=== PATIENT | male | born 1970 | race African-American/Black ===

== ENCOUNTER 2017-01-22 05:44 | Emergency (ER) | payer OTHER ==
[~2017-01-22] VITALS: Ht 177.8 cm; Wt 122.0 kg
[~2017-01-22 05:44] MED LIST: LISINOPRIL10 MG PO; ZYLOPRIM300 MG PO; allo PO
[2017-01-22] MEDS ORDERED: INDOCIN50 MG/CAP PO (06:13)
[2017-01-22] MEDS ORDERED: LORTAB 10-325 M1 TAB PO (06:13)
[2017-01-22 06:21] VITALS: BP 132/78
== END 2017-01-22 06:34 | disposition home or self-care (01) | DRG 554 ==
LOC: ED 05:44
DX: M10.071 Idiopathic gout, right ankle and foot (principal); M25.474 Effusion, right foot; M79.671 Pain in right foot

== ENCOUNTER 2017-06-23 00:19 | Emergency (ER) | payer OTHER ==
[~2017-06-23] VITALS: Ht 177.8 cm; Wt 132.6 kg
[~2017-06-23 00:19] MED LIST changes: +INDOCIN50 MG/CAP PO; +LORTAB 10-325 M1 TAB PO
[2017-06-23] MEDS ORDERED: TORADOL PO (00:43)
[2017-06-23] MEDS ORDERED: CLEOCIN150 MG PO (00:43)
[2017-06-23 00:55] VITALS: BP 168/100
== END 2017-06-23 00:59 | disposition home or self-care (01) | DRG 159 ==
LOC: ED 00:19
DX: K02.9 Dental caries, unspecified (principal); I10 Essential (primary) hypertension; M10.9 Gout, unspecified

== ENCOUNTER 2017-08-18 23:35 | Observation (INO) | payer OTHER ==
[~2017-08-18] VITALS: Ht 177.8 cm; Wt 132.0 kg
[~2017-08-18 23:35] MED LIST changes: +CLEOCIN150 MG PO; +TORADOL PO
[2017-08-19] MEDS ORDERED: ZESTRIL40 MG PO (00:01)
[2017-08-19 00:09] LABS: HEMATOCRIT 44.5 % (39.0-50.0); HEMOGLOBIN 14.7 g/dl (14.0-18.0); IMMATURE GRANULOCYTES 0.4 % (0.0-1.0); MEAN CELL VOLUME 84.8 fL CALC (80.0-100.0); NEUT# 5.39 thou/uL (1.82-7.42); RED BLOOD COUNT 5.25 mill/uL (4.70-6.10); RED CELL DISTRI WIDTH 14.7 % (11.5-15.5)
[2017-08-19 00:19] LABS: ANION GAP 16 (6-22 (CALC)); BUN 15 mg/dL (9-20); BUN/CREATININE RATIO 12 (12-20 (CALC)); CARBON DIOXIDE 22 mmol/l (22-30); CHLORIDE 109 mmol/l (95-108); CREATININE 1.3 mg/dL (0.7-1.3); GFR 59 ML/MIN (>=60 (CALC)); GFR FOR AFR.AMER. > 60 ML/MIN (>=60 (CALC)); POTASSIUM 3.9 mmol/l (3.5-5.1); SODIUM 143 mmol/l (137-146)
[2017-08-19 01:18] VITALS: BP 178/107
[2017-08-19 01:38] LABS: CHOLESTEROL HDL RATIO 4.5 (<4.4 (CALC))
[2017-08-19 02:09] LABS: TSH, 3RD GENERATION 2.64 uIU/mL (0.47 - 4.68)
[2017-08-19 04:45] VITALS: BP 154/94
[2017-08-19 08:04] VITALS: BP 153/91
[2017-08-19 11:28] VITALS: BP 159/80
[2017-08-19] MEDS ORDERED: AMLODIPINE BESYL5 MG PO (11:48)
[2017-08-19] MEDS ORDERED: ASPIRIN CHEWABL81 MG PO (11:48)
[2017-08-19] MEDS ORDERED: CLEOCIN150 MG PO (11:54)
[2017-08-19] MEDS ORDERED: FLORASTOR250 M1 PO (11:58)
== END 2017-08-19 13:54 | disposition home or self-care (01) | DRG 313 ==
LOC: ED 23:35 → ED-I 08-19 00:34 → ED 08-19 00:54 → MS2 08-19 00:55
PROVIDERS: Family Medicine; ADMIT Internal Medicine; ATTEND Internal Medicine
DX: R07.2 Precordial pain (principal); E66.01 Morbid (severe) obesity due to excess calories; Z68.41 Body mass index [BMI] 40.0-44.9, adult; I16.0 Hypertensive urgency; I10 Essential (primary) hypertension; E78.5 Hyperlipidemia, unspecified; F17.290 Nicotine dependence, other tobacco product, uncomplicated; M10.9 Gout, unspecified; K04.7 Periapical abscess without sinus; K02.9 Dental caries, unspecified
CPT/HCPCS: J1650

== ENCOUNTER 2018-05-06 16:03 | Emergency (ER) | payer OTHER ==
[~2018-05-06] VITALS: Ht 177.8 cm; Wt 135.4 kg
[~2018-05-06 16:03] MED LIST changes: +AMLODIPINE BESYL5 MG PO; +ASPIRIN CHEWABL81 MG PO; +FLORASTOR250 M1 PO; +ZESTRIL40 MG PO
[2018-05-06 17:55] LABS: ALBUMIN 3.9 g/dL (3.2-5.0); ALKALINE PHOSPHATASE 67 u/l (38-126); ANION GAP 12 (6-22 (CALC)); BILIRUBIN, TOTAL 0.5 mg/dL (0.0-1.4); BUN 13 mg/dL (9-20); BUN/CREATININE RATIO 12 (12-20 (CALC)); CARBON DIOXIDE 24 mmol/l (22-30); CHLORIDE 110 mmol/l (95-108); GFR > 60 ML/MIN (>=60 (CALC)); GFR FOR AFR.AMER. > 60 ML/MIN (>=60 (CALC)); POTASSIUM 3.9 mmol/l (3.5-5.1); SGOT/AST 28 u/l (17-59); SODIUM 142 mmol/l (137-146); TOTAL PROTEIN 7.3 g/dL (6.3-8.2)
[2018-05-06] MEDS ORDERED: LISINOPRIL40 MG PO (18:02)
[2018-05-06] MEDS ORDERED: CLEOCIN300 MG PO (18:02)
[2018-05-06 18:09] VITALS: BP 151/76
== END 2018-05-06 18:19 | disposition home or self-care (01) | DRG 948 ==
LOC: ED 16:03
PROVIDERS: Emergency Medicine
DX: R60.0 Localized edema (principal); I10 Essential (primary) hypertension

== ENCOUNTER 2018-09-01 05:20 | Emergency (ER) | payer OTHER ==
[~2018-09-01] VITALS: Ht 177.8 cm; Wt 136.8 kg
[~2018-09-01 05:20] MED LIST changes: +CLEOCIN300 MG PO; +LISINOPRIL40 MG PO
[2018-09-01] MEDS ORDERED: ASPIRIN81 MG PO (06:10)
[2018-09-01 06:35] LABS: HEMATOCRIT 45.4 % (39.0-50.0); HEMOGLOBIN 14.6 g/dl (14.0-18.0); IMMATURE GRANULOCYTES 0.5 % (0.0-5.0); MEAN CELL VOLUME 85.5 fL CALC (80.0-100.0); MEAN CORPUSCULAR HGB 27.5 pG CALC (26.0-32.0); MEAN CORPUSCULAR HGB CONC 32.2 g/L CALC (32.0-36.0); NEUT# 5.7 thou/uL (1.82-7.42); RED BLOOD COUNT 5.31 mill/uL (4.70-6.10); RED CELL DISTRI WIDTH 14.9 % (11.5-15.5)
[2018-09-01 06:48] LABS: ALBUMIN 4.2 g/dL (3.2-5.0); ALKALINE PHOSPHATASE 83 u/l (38-126); ANION GAP 13 (6-22 (CALC)); BILIRUBIN, TOTAL 0.5 mg/dL (0.0-1.4); BUN 13 mg/dL (9-20); BUN/CREATININE RATIO 12 (12-20 (CALC)); CARBON DIOXIDE 23 mmol/l (22-30); CHLORIDE 110 mmol/l (95-108); CREATININE 1.1 mg/dL (0.7-1.3); GFR > 60 ML/MIN (>=60 (CALC)); GFR FOR AFR.AMER. > 60 ML/MIN (>=60 (CALC)); POTASSIUM 3.9 mmol/l (3.5-5.1); SGOT/AST 34 u/l (17-59); SODIUM 142 mmol/l (137-146); TOTAL PROTEIN 7.8 g/dL (6.3-8.2)
[2018-09-01 07:00] LABS: MYOGLOBIN 98 ng/mL (0 - 121)
[2018-09-01 08:00] LABS: URINE BILIRUBIN - DIPSTICK NEGATIVE (NEGATIVE); URINE BLOOD DIPSTICK NEGATIVE (NEGATIVE); URINE COLOR YELLOW; URINE GLUCOSE - DIPSTICK NEGATIVE (NEGATIVE); URINE KETONE NEGATIVE (NEGATIVE); URINE LEUK ESTERASE NEGATIVE (NEGATIVE); URINE NITRITE - DIPSTICK NEGATIVE (Negative); URINE PH 6.5 (4.5-8.0); URINE PROTEIN - DIPSTICK 30 mg/dL (NEG-TRACE); URINE UROBILINOGEN - DIPSTICK 0.2 E.U./dL (0.2)
[2018-09-01 08:04] LABS: BARBITURATES NEGATIVE (NEGATIVE); COCAINE NEGATIVE (NEGATIVE); METHADONE NEGATIVE (NEGATIVE); OXCYCODONE NEGATIVE (NEGATIVE); TETRAHYDROCANNABIONOL NEGATIVE (NEGATIVE); TRICYLIC ANTIDEPRESSANTS NEGATIVE (NEGATIVE); URINE RBC 0-2 RBC/hpf (0-5); URINE WBC 0-2 WBC/hpf (0-5)
[2018-09-01] MEDS ORDERED: ZESTRIL40 MG PO (08:21)
[2018-09-01 08:37] VITALS: BP 155/67
== END 2018-09-01 09:50 | disposition home or self-care (01) | DRG 149 ==
LOC: ED 05:20
PROVIDERS: Emergency Medicine
DX: R42 Dizziness and giddiness (principal); S96.911A Strain of unspecified muscle and tendon at ankle and foot level, right foot, initial encounter; I10 Essential (primary) hypertension; F17.290 Nicotine dependence, other tobacco product, uncomplicated; X58.XXXA Exposure to other specified factors, initial encounter

== ENCOUNTER 2018-10-25 04:25 | Emergency (ER) | payer OTHER ==
[~2018-10-25] VITALS: Ht 177.8 cm; Wt 131.4 kg
[~2018-10-25 04:25] MED LIST changes: +ASPIRIN81 MG PO
[2018-10-25 06:00] VITALS: BP 174/94
== END 2018-10-25 06:00 | disposition home or self-care (01) | DRG 914 ==
LOC: ED 04:25
DX: S09.90XA Unspecified injury of head, initial encounter (principal); R51 Headache; I10 Essential (primary) hypertension; W01.0XXA Fall on same level from slipping, tripping and stumbling without subsequent striking against object, initial encounter; Y99.0 Civilian activity done for income or pay

== ENCOUNTER 2019-08-29 | Emergency (ER) | payer OTHER ==
[2019-08-30] MEDS ORDERED: VOLTAREN - GENE75 MG PO (00:26)
== END 2019-08-30 01:08 | disposition home or self-care (01) | DRG 563 ==
DX: S83.91XA Sprain of unspecified site of right knee, initial encounter (principal); I10 Essential (primary) hypertension; X50.0XXA Overexertion from strenuous movement or load, initial encounter

== ENCOUNTER 2019-09-22 19:06 | Emergency (ER) | payer OTHER ==
[~2019-09-22 19:06] MED LIST changes: +VOLTAREN - GENE75 MG PO
[2019-09-22] MEDS ORDERED: LISINOPRIL40 MG PO (19:34)
[2019-09-22] MEDS ORDERED: STERAPRED DS10 MG PO ×2 (19:43)
[2019-09-22 20:25] VITALS: BP 168/96
== END 2019-09-22 20:25 | disposition home or self-care (01) | DRG 563 ==
LOC: ED 19:06
DX: S83.91XA Sprain of unspecified site of right knee, initial encounter (principal); I10 Essential (primary) hypertension; X58.XXXA Exposure to other specified factors, initial encounter

== ENCOUNTER 2020-02-03 08:45 | Emergency (ER) | payer OTHER ==
[~2020-02-03] VITALS: Ht 177.8 cm; Wt 140.0 kg
[~2020-02-03 08:45] MED LIST changes: +STERAPRED DS10 MG PO
[2020-02-03 09:13] LABS: HEMATOCRIT 46.6 % (39.0-50.0); HEMOGLOBIN 14.4 g/dl (14.0-18.0); IMMATURE GRANULOCYTES 0.4 % (0.0-5.0); MEAN CELL VOLUME 85.8 fL CALC (80.0-100.0); MEAN CORPUSCULAR HGB 26.5 pG CALC (26.0-32.0); MEAN CORPUSCULAR HGB CONC 30.9 g/dL CAL (32.0-36.0); NEUT# 5.93 thou/uL (1.82-7.42); RED BLOOD COUNT 5.43 mill/uL (4.70-6.10); RED CELL DISTRI WIDTH 14.9 % (11.5-15.5)
[2020-02-03 09:36] LABS: ANION GAP 11 (6-22 (CALC)); BUN 16 mg/dL (9-20); BUN/CREATININE RATIO 14 (12-20 (CALC)); CARBON DIOXIDE 24 mmol/l (22-30); CHLORIDE 107 mmol/l (95-108); CREATININE 1.2 mg/dL (0.7-1.3); GFR > 60 ML/MIN (>=60 (CALC)); GFR FOR AFR.AMER. > 60 ML/MIN (>=60 (CALC)); SODIUM 138 mmol/l (137-146)
[2020-02-03 10:29] LABS: URINE BILIRUBIN - DIPSTICK NEGATIVE (NEGATIVE); URINE BLOOD DIPSTICK NEGATIVE (NEGATIVE); URINE COLOR YELLOW; URINE GLUCOSE - DIPSTICK NEGATIVE (NEGATIVE); URINE KETONE NEGATIVE (NEGATIVE); URINE LEUK ESTERASE NEGATIVE (NEGATIVE); URINE NITRITE - DIPSTICK NEGATIVE (Negative); URINE PROTEIN - DIPSTICK NEGATIVE (NEG-TRACE); URINE SPECIFIC GRAVITY >=1.030; URINE UROBILINOGEN - DIPSTICK 0.2 E.U./dL (0.2)
[2020-02-03 10:46] VITALS: BP 151/88
== END 2020-02-03 11:04 | disposition home or self-care (01) | DRG 305 ==
LOC: ED 08:45
PROVIDERS: Student in an Organized Health Care Education/Training Program
DX: I10 Essential (primary) hypertension (principal)

== ENCOUNTER 2020-07-18 22:28 | Emergency (ER) | payer OTHER ==
[~2020-07-18] VITALS: Ht 177.8 cm; Wt 129.5 kg
[2020-07-18] MEDS ORDERED: PRAVASTATIN SOD10 MG PO (23:00)
[2020-07-18] MEDS ORDERED: NORVASC2.5 M1 PO (23:00)
[2020-07-18 23:30] LABS: HEMATOCRIT 53.1 % (39.0-50.0); HEMOGLOBIN 15.9 g/dl (14.0-18.0); IMMATURE GRANULOCYTES 0.5 % (0.0-5.0); MEAN CELL VOLUME 89.1 fL CALC (80.0-100.0); MEAN CORPUSCULAR HGB 26.7 pG CALC (26.0-32.0); MEAN CORPUSCULAR HGB CONC 29.9 g/dL CAL (32.0-36.0); NEUT# 3.6 thou/uL (1.82-7.42); RED BLOOD COUNT 5.96 mill/uL (4.70-6.10)
[2020-07-18 23:47] LABS: ALBUMIN 4.4 g/dL (3.2-5.0); BILIRUBIN, TOTAL 0.5 mg/dL (0.0-1.4); CREATININE 1.5 mg/dL (0.7-1.3); POTASSIUM 4.2 mmol/l (3.5-5.1); TOTAL PROTEIN 8.8 g/dL (6.3-8.2)
[2020-07-19 01:10] VITALS: BP 114/68
== END 2020-07-19 01:10 | disposition home or self-care (01) | DRG 179 ==
LOC: ED 22:28
PROVIDERS: Emergency Medicine
DX: U07.1 COVID-19 (principal); R19.7 Diarrhea, unspecified; R10.9 Unspecified abdominal pain; I10 Essential (primary) hypertension; E78.00 Pure hypercholesterolemia, unspecified

== ENCOUNTER 2020-07-20 17:16 | Inpatient (IN) | payer OTHER ==
[~2020-07-20] VITALS: Ht 177.8 cm; Wt 142.0 kg
[~2020-07-20 17:16] MED LIST changes: +NORVASC2.5 M1 PO; +PRAVASTATIN SOD10 MG PO
--- NOTE | 2020-07-20 17:30 | NUR ---
PT TO ROOM # 9 VIA W/C FOR BEDSIDE TRIAGE
[2020-07-20 18:21] LABS: HEMATOCRIT 49.6 % (39.0-50.0); HEMOGLOBIN 15.8 g/dl (14.0-18.0); IMMATURE GRANULOCYTES 0.3 % (0.0-5.0); MEAN CELL VOLUME 84.1 fL CALC (80.0-100.0); MEAN CORPUSCULAR HGB 26.8 pG CALC (26.0-32.0); MEAN CORPUSCULAR HGB CONC 31.9 g/dL CAL (32.0-36.0); NEUT# 5.21 thou/uL (1.82-7.42); RED BLOOD COUNT 5.9 mill/uL (4.70-6.10); RED CELL DISTRI WIDTH 14.6 % (11.5-15.5)
--- NOTE | 2020-07-20 18:23 | NUR ---
Reassessment of patient completed. No distress noted.
[2020-07-20 18:43] LABS: ALBUMIN 4.5 g/dL (3.2-5.0); BILIRUBIN, TOTAL 0.4 mg/dL (0.0-1.4); CREATININE 1.5 mg/dL (0.7-1.3); POTASSIUM 4.6 mmol/l (3.5-5.1); TOTAL PROTEIN 8.5 g/dL (6.3-8.2)
[2020-07-20 18:47] LABS: ACT PARTIAL THROMBO TIME 30.5 SECONDS (20.0-32.5); INTERNATIONAL NORMALIZED RATIO 1.1 RATIO (0.7-1.3); PROTHROMBIN TIME 10.7 SECONDS (9.0-12.5)
--- NOTE | 2020-07-20 19:09 | NUR ---
REPORT GIVEN TO DEYSI DE LOS SANTOS
--- NOTE | 2020-07-20 21:00 | NUR ---
PT UP TO CHAIR WHILE STRETCHER REMOVED/HOSPITAL BED RETURNED TO ROOM.
--- NOTE | 2020-07-20 21:10 | NUR ---
LAB HERE TO COLLECT BLOOD
--- NOTE | 2020-07-20 21:54 | NUR ---
WILLIAM LEAL NOTIFIED OF O2 SATS DROPPING BELOW 90...ON 5 LPM NC. WILL HAVE RT PLACE PT ON HIGH FLOW O2 TO MAINTAIN SAT >92.
--- NOTE | 2020-07-20 22:05 | NUR ---
RT HERE AND PLACED PT ON HIGH FLOW. WILL MONITOR. PT GIVEN 2 CUPS OF APPLE JUICE AND FROZEN DINNER WILL BE BROUGHT DOWN BY SALES ASSISTANT DISPLAYS.
--- NOTE | 2020-07-20 22:10 | NUR ---
FROZEN DINNER PREPARED FOR PT.
--- NOTE | 2020-07-20 22:28 | NUR ---
report from er staff is that pt positive for covid 2 days ago, so not retested and considered positive
--- NOTE | 2020-07-20 22:50 | NUR ---
FROZEN DINNER PROVIDED. PT MADE COMFORTABLE. O2 SATS >94
[2020-07-21] VITALS (14 sets, daily range): BP systolic 120–156; BP diastolic 64–95
--- NOTE | 2020-07-21 02:54 | NUR ---
UPDATED BROTHER ON PT'S CONDITION AT PT'S APPROVAL.
--- NOTE | 2020-07-21 04:46 | NUR ---
REPORT TO VITALY/ICU.
--- NOTE | 2020-07-21 05:00 | NUR ---
50 yr old black male rec'd per stretcher from er. transferred self to bed. bed weight obtained. o2 cont 8 l/m per nc. cardiac nurse shows sinus rhythm. #22 lt hand. ns infusing @ 75cchr. oriented to room. fall & air/contact precautions initiated.
[2020-07-21 07:09] LABS: HEMOGLOBIN 14.8 g/dl (14.0-18.0); IMMATURE GRANULOCYTES 0.3 % (0.0-5.0); MEAN CELL VOLUME 85.3 fL CALC (80.0-100.0); MEAN CORPUSCULAR HGB 26.9 pG CALC (26.0-32.0); MEAN CORPUSCULAR HGB CONC 31.5 g/dL CAL (32.0-36.0); NEUT# 3.95 thou/uL (1.82-7.42); RED BLOOD COUNT 5.51 mill/uL (4.70-6.10); RED CELL DISTRI WIDTH 14.6 % (11.5-15.5)
--- NOTE | 2020-07-21 07:25 | NUR ---
pt awake in bed conversing on cell phone; no apparent distress noted; pt offers no complaints; assessment completed at this time; pt alert and oriented; denies pain; no n/v noted; resp even and unlabored; lungs clear/ diminished bases; skin color wnl; o2 per nc at 8L; no resp distress noted; hr reg; strong pulses; no pedal edema noted; sr on monitor; abd soft/ distended with bs present; no bm noted per scenario writer; pt no urine to inspect at this time; urinal at bedside; #22 to lh patent with ivf infusing without complication; no redness or edema noted at site; plan of care/ am meds explained; proning explained; call light within reach; will continue to monitor
[2020-07-21 07:35] LABS: ALKALINE PHOSPHATASE 58 u/l (38-126); ANION GAP 15 (6-22 (CALC)); BILIRUBIN, TOTAL 0.5 mg/dL (0.0-1.4); BUN 18 mg/dL (9-20); BUN/CREATININE RATIO 15 (12-20 (CALC)); C-REACTIVE PROTEIN 3.3 mg/dL (0-0.9); CARBON DIOXIDE 21 mmol/l (22-30); CHLORIDE 103 mmol/l (95-108); CREATININE 1.3 mg/dL (0.7-1.3); GFR 58 ML/MIN (>=60 (CALC)); GFR FOR AFR.AMER. > 60 ML/MIN (>=60 (CALC)); POTASSIUM 4.6 mmol/l (3.5-5.1); SGOT/AST 33 u/l (17-59); SODIUM 135 mmol/l (137-146); TOTAL PROTEIN 7.7 g/dL (6.3-8.2)
--- NOTE | 2020-07-21 08:39 | NUR ---
Dr Myrick and Augusto Gan present at bedside to assess pt and discuss plan of care
--- NOTE | 2020-07-21 09:46 | NUR ---
PT WOULD BENEFIT FROM PT EVALUATION IF MEDICAL AGREES.
--- NOTE | 2020-07-21 10:15 | NUR ---
awake in bed; no apparent distress noted; st monitor; iv intact and patent; o2 per nc; call light within reach; will continue to monitor
--- NOTE | 2020-07-21 12:08 | NUR ---
awake sitting on side of bed eating lunch; no apparent distress noted; pt offers no complaints; iv intact and patent; st on monitor; o2 per nc; call light within reach; will continue to monitor
--- NOTE | 2020-07-21 13:05 | NUR ---
awake sitting on side of bed; offers no complaints; iv intact and patent; st on monitor; o2 per nc; call light within reach; will continue to monitor
--- NOTE | 2020-07-21 14:11 | NUR ---
awake sitting on side of bed; no apparent distress noted; o2 per nc; st on monitor; call light within reach; will continue to monitor
--- NOTE | 2020-07-21 16:06 | NUR ---
pt resting in bed; no apparent distress noted; pt offers no complaints; iv intact and patent; no redness or edema noted at site; o2 per nc; sr on monitor; call light within reach; will continue to monitor
--- NOTE | 2020-07-21 18:13 | NUR ---
pt sitting on the side of bed eating dinner; no apparent distress noted; pt offers no complaints; iv intact and patent; no redness or edema noted at site; st on monitor; call light within reach
--- NOTE | 2020-07-21 18:45 | NUR ---
report given to Kevin Hopson LPN
--- NOTE | 2020-07-21 20:15 | NUR ---
awake. denies resp diff. o2 cont 8 l/m per high flow cannula. gambling monitor shows sinus tach hr 100. #22 lt hand ns infusing @ 75cchr. po fluids taken well. voids per urinal. instructed about importance of prone position but does not wish to @ present. fall & air/contact precautions cont.
--- NOTE | 2020-07-21 22:00 | NUR ---
eyes closed. no distress. o2 cont. adjunct instructor of women's studies shows sinus tach hr 102.
[2020-07-22] VITALS (9 sets, daily range): BP systolic 111–158; BP diastolic 67–94
--- NOTE | 2020-07-22 00:01 | NUR ---
resting quietly. nad. nuclear monitoring technician shows sinus rhythm hr 98.
--- NOTE | 2020-07-22 01:50 | NUR ---
pulse ox shows 85%. o2 increased by 2 liters @ a time until 15 liters is reached without effect. pulse ox still shows 85%. rt notified.
--- NOTE | 2020-07-22 04:00 | NUR ---
eyes closed. vapotherm cont. no resp diff @ present.
--- NOTE | 2020-07-22 04:45 | NUR ---
lab here. blood drawn.
[2020-07-22 05:31] LABS: HEMATOCRIT 46.3 % (39.0-50.0); HEMOGLOBIN 14.6 g/dl (14.0-18.0); IMMATURE GRANULOCYTES 0.2 % (0.0-5.0); MEAN CELL VOLUME 84.5 fL CALC (80.0-100.0); MEAN CORPUSCULAR HGB 26.6 pG CALC (26.0-32.0); MEAN CORPUSCULAR HGB CONC 31.5 g/dL CAL (32.0-36.0); NEUT# 6.86 thou/uL (1.82-7.42); RED BLOOD COUNT 5.48 mill/uL (4.70-6.10); RED CELL DISTRI WIDTH 14.5 % (11.5-15.5)
[2020-07-22 05:56] LABS: ALBUMIN 3.9 g/dL (3.2-5.0); ALKALINE PHOSPHATASE 59 u/l (38-126); ANION GAP 13 (6-22 (CALC)); BILIRUBIN, TOTAL 0.5 mg/dL (0.0-1.4); BUN 17 mg/dL (9-20); BUN/CREATININE RATIO 15 (12-20 (CALC)); C-REACTIVE PROTEIN 3.7 mg/dL (0-0.9); CARBON DIOXIDE 24 mmol/l (22-30); CHLORIDE 100 mmol/l (95-108); CREATININE 1.1 mg/dL (0.7-1.3); GFR > 60 ML/MIN (>=60 (CALC)); GFR FOR AFR.AMER. > 60 ML/MIN (>=60 (CALC)); POTASSIUM 4.5 mmol/l (3.5-5.1); SGOT/AST 39 u/l (17-59); SODIUM 132 mmol/l (137-146); TOTAL PROTEIN 7.6 g/dL (6.3-8.2)
--- NOTE | 2020-07-22 06:00 | NUR ---
no resp diff. vapotherm conts.
--- NOTE | 2020-07-22 07:21 | NUR ---
PT SITTING IN BED. A&O X3. SHALLOW BREATHING NOTED. O2 @ 40 L 90% HUMIDIFIED VAPOTHERM IN PLACE. O2 SUSTAINING 88-89%. PT EDUCATED ON IMPORTANCE OF PRONING AND ITS BENEFITS, EXPLAINED TO PT THAT HE WOULD BE ASSISTED TO A PRONE POSITION AFTER BREAKFAST. PT HESITANT BUT AGREED. PT TACHYCARDIAC ON MONITOR, 110-120 BPM. PT DENIES ANY PAIN. DISCUSED POC. CALL LIGHT WITHIN REACH.
--- NOTE | 2020-07-22 07:30 | NUR ---
ALEE RT AT BEDSIDE INCREASING VAPOTHERM FROM 90% HUMIDIFIED TO 100% HUMIDIFIED.
--- NOTE | 2020-07-22 09:06 | NUR ---
DR BARKLEY AND Augusto JIMENEZ APRN AT BEDSIDE
--- NOTE | 2020-07-22 12:15 | NUR ---
ASSISTED PT TO CHAIR TO CHANGE LINEN. PT REPORTS TO FEELING BETTER. ASSISTED PT BACK TO PRONE POSITION. CALL LIGHT LEFT WITHIN REACH. CONTINUE TO MONITOR.
--- NOTE | 2020-07-22 13:56 | NUR ---
PT IN PRONE POSITION. SUSTAINING 95-96%. CALL LIGHT LEFT IN REACH
--- NOTE | 2020-07-22 16:14 | NUR ---
PT SITTING ON THE SIDE OF THE BED, O2 SUSTAINING 90%. CALL LIGHT WITHIN REACH.
--- NOTE | 2020-07-22 20:08 | NUR ---
PT ASSISTED BACK INTO PRONE POSITION. O2 90-92%. AZITHROMYCIN INITIATED. CALL LIGHT LEFT WITHIN REACH.
--- NOTE | 2020-07-22 20:35 | NUR ---
REPORT GIVEN TO Jose Rafael DURHAM RN
--- NOTE | 2020-07-22 21:51 | NUR ---
PT IN PRONE POSITION; A/O X3; WEB DEVELOPMENT INTERN COUGH; VAPOTHERM AT 40 L 100% HUMIDIFIED, O2 SAT 86-88%; RT CALLED TO ASSESS PT; PT VOIDS WELL IN URINAL; BAR ROLLER SR 90; CALL QUEZADA WITHIN REACH; WILL CONTINUE TO MONITOR.
[2020-07-23] VITALS (13 sets, daily range): BP systolic 133–165; BP diastolic 78–98
--- NOTE | 2020-07-23 01:05 | NUR ---
PT ASSISTED TO SIDE OF BED; VOIDS IN URINAL WITHOUT DIFFICULTY; NO COMPLAINTS OR CONCERNS VOICED AT THIS TIME; CALL QUEZADA WITHIN REACH; WILL CONTINUE TO MONITOR.
--- NOTE | 2020-07-23 04:10 | NUR ---
PT ASSISTED TO BSC; MODERATE BM NOTED; NO OTHER COMPLAINTS VOICED; CALL QUEZADA WITHIN REACH; WILL CONTINUE TO MONITOR
[2020-07-23 06:52] LABS: HEMATOCRIT 47.2 % (39.0-50.0); MEAN CELL VOLUME 84.6 fL CALC (80.0-100.0); MEAN CORPUSCULAR HGB 26.9 pG CALC (26.0-32.0); MEAN CORPUSCULAR HGB CONC 31.8 g/dL CAL (32.0-36.0); RED BLOOD COUNT 5.58 mill/uL (4.70-6.10); RED CELL DISTRI WIDTH 14.5 % (11.5-15.5)
--- NOTE | 2020-07-23 07:04 | NUR ---
REPORT RECEIVED FROM SUPERVISOR FINISH END, PT LAYING PRONE, TELEMETRY ON BACK, VAPOTHERM AT 40%, IV FLUIDS INFUSING.
[2020-07-23 07:17] LABS: ALBUMIN 3.7 g/dL (3.2-5.0); ALKALINE PHOSPHATASE 51 u/l (38-126); ANION GAP 15 (6-22 (CALC)); BILIRUBIN, TOTAL 0.7 mg/dL (0.0-1.4); BUN 18 mg/dL (9-20); BUN/CREATININE RATIO 19 (12-20 (CALC)); CARBON DIOXIDE 22 mmol/l (22-30); CHLORIDE 101 mmol/l (95-108); GFR > 60 ML/MIN (>=60 (CALC)); GFR FOR AFR.AMER. > 60 ML/MIN (>=60 (CALC)); SGOT/AST 50 u/l (17-59); SODIUM 132 mmol/l (137-146); TOTAL PROTEIN 7.4 g/dL (6.3-8.2)
--- NOTE | 2020-07-23 07:56 | NUR ---
PT PLACED UP IN RECLINER PER PT REQUEST. SATS DROPPED DOWN TO 83, AND THEN UP TO 89 AFTER PT RELAXED.
--- NOTE | 2020-07-23 10:17 | NUR ---
PT REMAINS SITTING UP IN CHAIR, USING INSPIROMETER AND WATCHING TV. FAMILY HAS CALLED SEVERAL TIMES FOR UPDATE AND HE HAS BEEN ON PHONE WITH THEM.
--- NOTE | 2020-07-23 11:16 | NUR ---
PLACED PT BACK IN PRONE POSITION ON BED, SATS 87%, PT ALERT/ORIENTED X3, STATES THE INSPIROMETER IS VERY HARD TO DO BUT THAT HE WILL CONTINUE TO DO IT. SPOKE WITH HIS DAUGHTER HESHAM, PT STATES THAT HE DOES NOT LIKE THE HOSPITAL FOOD AND HIS DAUGHTER WILL BE SENDING SOMETHING FOR HIM TO EAT FOR LUNCH. STATES HE PLANS ON GETTING UP IN CHAIR EVERY COUPLE OF HOURS AND THEN PRONING EVERY COUPLE OF HOURS.
--- NOTE | 2020-07-23 12:43 | NUR ---
PT BACK INTO RECLINER FROM PRONE POSITION. SATS DROPPED FROM 87 TO 79 % IN TRANSITION FROM BED TO RECLINER, TOOK APPROX 2 MINUTES FOR SATS TO IMPROVE.
--- NOTE | 2020-07-23 15:25 | NUR ---
PT TAKING OFF GOWN AND PULLING OFF CARDIAC MONITER, STARTING TO GET AGITATED AND TELLING STAFF SHE IS GETTING OUT OF HERE.
--- NOTE | 2020-07-23 16:53 | NUR ---
ADVISED PT TO BREATHE THRU NOSE INSTEAD OFMOUTH, TO TAKE SLOW DEEP BREATHS, WHEN PT DOES THAT HIS OXYGEN LEVEL WILL GO UP TO 90-92%, PT IS A MOUTH BREATHER AND WHEN HE IS SLEEPING OR NOT THINKING ABOUT IT, HIS MOUTH STAYS OPEN AND SATS DROP DOWN TO 84-87%. PT IS PRONING AT THIS TIME, ON PHONE TALKING.
--- NOTE | 2020-07-23 16:58 | NUR ---
PT STATES SPOKE TO HIM ABOUT POSSIBLE INTUBATION BUT PT STATES AT THIS TIME DOES NOT WANT TO DO IT. HE WANTS TO KEEP ON PRONING AND SITTING UP AND HAVING NEB TREATMENTS.
--- NOTE | 2020-07-23 17:59 | NUR ---
PT BACK UP IN RECLINER, PT DECLINES OFFER FOR BIPAP, STATES CANT HANDLE HAVING MASK OVER FACE. SATS 83-84%. PT REMAINS ALERT/ORIENTED X3, REITERATED THE NEED TO TAKE DEEP BREATHS THRU NOSE INSTEAD OF MOUTH, PT EATING SUPPER AT THIS TIME, WATCHING TV.
--- NOTE | 2020-07-23 19:14 | NUR ---
RT AT BEDSIDE TO EVALUATE HYPOXIA WITH VAPOTHERM IN PLACE. NONBREATHER PLACED OVER NC; WILL CONTINUE TO ASSESS SPO2.
--- NOTE | 2020-07-23 20:00 | NUR ---
REPORT RECEIVED FROM RE DE LOS SANTOS. CARE ASSUMED.
--- NOTE | 2020-07-23 20:15 | NUR ---
PT SITTING UP IN RECLINER AT THIS TIME. RESP ARE EVEN AND UNLABORED. NO DISTRESS NOTED. PT DENIES SOB. PT IS ALERT AND ORIENTED X3. SHIFT ASSESSMENT COMPLETED AT THIS TIME. IV PATENT X1. CALL LIGHT IN REACH. WILL CONTINUE TO MONITOR.
--- NOTE | 2020-07-23 21:00 | NUR ---
PT ASSISTED BACK TO BED AT THIS TIME. PT LYING PRONE. PT REMAINS ON VAPOTHERM AND NRB AT THIS TIME. CALL LIGHT IN REACH. WILL CONTINUE TO MONITOR.
--- NOTE | 2020-07-23 21:31 | NUR ---
RT AT BEDSIDE AT THIS TIME. FOR O2 SATS <90%. WILL CONTINUE TO MONITOR.
--- NOTE | 2020-07-23 21:53 | NUR ---
NOTIFIED DR BARKLEY OF PT O2 SATS. ORDERS RECEIVED TO PLACE PT ON BIPAP.
--- NOTE | 2020-07-23 22:00 | NUR ---
RT AT BEDSIDE TO PLACE PT ON BIPAP AT THIS TIME.
[2020-07-24] VITALS (18 sets, daily range): BP systolic 124–184; BP diastolic 76–109
--- NOTE | 2020-07-24 00:29 | NUR ---
RT AT BEDSIDE TO EVALUATE PT FOR LOW O2 SATS. WILL CONTINUE TO MONTIOR
--- NOTE | 2020-07-24 02:03 | NUR ---
PT RESTING IN BED ON BIPAP. VSS ON MONITOR. CALL LIGHT IN REACH. WILL CONTINUE TO MONITOR.
--- NOTE | 2020-07-24 03:21 | NUR ---
RT AT BEDSIDE AT THIS TIME FOR DECREASED O2 SATS
--- NOTE | 2020-07-24 04:07 | NUR ---
LAB AT BEDSIDE AT THIS TIME.
[2020-07-24 05:30] LABS: HEMATOCRIT 48.2 % (39.0-50.0); HEMOGLOBIN 15.1 g/dl (14.0-18.0); IMMATURE GRANULOCYTES 0.5 % (0.0-5.0); MEAN CELL VOLUME 84.6 fL CALC (80.0-100.0); MEAN CORPUSCULAR HGB 26.5 pG CALC (26.0-32.0); MEAN CORPUSCULAR HGB CONC 31.3 g/dL CAL (32.0-36.0); NEUT# 6.92 thou/uL (1.82-7.42); RED BLOOD COUNT 5.7 mill/uL (4.70-6.10); RED CELL DISTRI WIDTH 14.6 % (11.5-15.5)
--- NOTE | 2020-07-24 05:53 | NUR ---
PT RESTING IN BED ON BIPAP. VSS ON MONTIOR. CALL LIGHT IN REACH WILL [place] TO [facility].
[2020-07-24 05:57] LABS: ALBUMIN 3.9 g/dL (3.2-5.0); ALKALINE PHOSPHATASE 56 u/l (38-126); ANION GAP 15 (6-22 (CALC)); BILIRUBIN, TOTAL 0.6 mg/dL (0.0-1.4); BUN 18 mg/dL (9-20); BUN/CREATININE RATIO 21 (12-20 (CALC)); C-REACTIVE PROTEIN 6.2 mg/dL (0-0.9); CARBON DIOXIDE 22 mmol/l (22-30); CHLORIDE 101 mmol/l (95-108); CREATININE 0.9 mg/dL (0.7-1.3); GFR > 60 ML/MIN (>=60 (CALC)); GFR FOR AFR.AMER. > 60 ML/MIN (>=60 (CALC)); POTASSIUM 5.1 mmol/l (3.5-5.1); SGOT/AST 46 u/l (17-59); SODIUM 132 mmol/l (137-146); TOTAL PROTEIN 7.5 g/dL (6.3-8.2)
--- NOTE | 2020-07-24 06:04 | NUR ---
DR CAPUTO NOTIFIED OF ELEVATED BP. NEW ORDERS RECEIVED.
--- NOTE | 2020-07-24 06:30 | NUR ---
PT MEDICATED PER MAR WITH LABETALOL. HR 110 AND BP 184/150. POST PUSH HEART RATE 97 AND BP 171/92
--- NOTE | 2020-07-24 07:25 | NUR ---
PATIENT IS AWAKE, ORIENTED X4. NURSE ASSESSMENT PERFORMED. POC DISCUSSED. DOES NOT HAVE ANY COMPLAINTS. PATIENT WAS EXPLAINED ABOUT PRONING, WAS EXPLAINED ABOUT BEING ON BIPAP, PATIENT NODS HIS HEAD NO, PATIENT WAS EXPLAINED HE DESATS DANGEROUSLY LOW WHEN OFF OF BIPAP. HE CLOSES HIS EYES AT TIMES IF HE IS NOT LISTENING. IV X1 INTACT, NS AT 20ML/HR. PATIENT DENIES SOB, DOES DESAT TO 80'S WHEN TAKEN OFF OF BIPAP TO DRINK WATER. CALL LIGHT WITHIN REACH.
--- NOTE | 2020-07-24 08:45 | NUR ---
RT IN ROOM TO TAKE OFF OF BIPAP AND PLACE ON VAPOTHERM
--- NOTE | 2020-07-24 08:50 | NUR ---
BIPAP STANDBY. PT ON VAPOTHERM @40L AND 100%. ALSO ON NRB AT 15L.
--- NOTE | 2020-07-24 09:20 | NUR ---
PT FAILED TO MAINTAIN SPO2 GREATER THAN 82 ON VAPOTHERM. PLACED BACK ON BIPAP.
--- NOTE | 2020-07-24 09:20 | NUR ---
O2 SAT 81% WITH VAPOTHERM AND NRB MASK, PLACED BACK ON BIPAP.
--- NOTE | 2020-07-24 10:14 | NUR ---
PATIENT EXPLAINED ABOUT LAYING PRONE, HE WAS HESITANT AND NODDED NO, DID AGREE TO LAY PRONE AND WAS ASSISTED TO LAY PRONE. O2 SAT 97% ON BIPAP LAYING PRONE, RESPIRATION RATE IN THE 30'S. AM MEDICATIONS GVEN, DOES DESAT TO 77% WHEN DRINKING WATER AND SWALLOWING MEDICATIONS.
--- NOTE | 2020-07-24 10:31 | NUR ---
CALLED AND SPOKE TO BROTHER XAVIER AND ASKED PATIENT IF HE CONSENTED TO PROVIDE INFORMATION TO BROTHER, PATIENT AGREED AND PASSCODE GIVEN WELL. UPATED BROTHER WELL. SISTER HESHAM CALLED HERE, I ASKED PATIENT FOR PERMISSION, PATIENT CONSENTS AND PASSCODE PROVIDED, UPDATED HIS SISTER. SISTER MADE IT CLEAR TO CALL HER BEFORE ANY PROCEDURE OR INTUBATION. TWO PHONE NUMBERS IN CHART.
--- NOTE | 2020-07-24 10:45 | NUR ---
PATIENT'S SISTER HESHAM CALLED HERE FOR MORE INFORMATION. PROVIDED PASSCODE, SHE ALSO HAD NIECE WHO IS A NURSE ON PHONE, ALL INFORMATION GIVEN.
--- NOTE | 2020-07-24 11:28 | NUR ---
PATIENT BACK TO [facility] FROM PRONE ABOUT 1055. ENCOURAGE TO LAY ON EITHER SIDE. NOW LAYS ON RIGHT SIDE, O2 SAT 92%. ASSISTED TO REPOSITION. ASSURED HE WAS COMFORTABLE.
--- NOTE | 2020-07-24 13:23 | NUR ---
PATIENT ASSISTED TO BSC BY NURSE YANIRA, HAD BM. ALSO LAYED BACK TO PRONE.
--- NOTE | 2020-07-24 14:28 | NUR ---
REMDESEVIR INFUSING NOW. PATIENT ASSISTED TO SIT ON SIDE OF BED, WITH FEET DANGLING FROM PRONE POSITION.. CALL LIGHT WITHIN REACH.
--- NOTE | 2020-07-24 14:52 | NUR ---
BIPAP TAKEN OFF FOR PATIENT TO BLOW HIS NOSE, MASK PLACED BACK ON IMMEDIATELY, O2 SATS INCREASE QUICKLY.
--- NOTE | 2020-07-24 15:16 | NUR ---
BIPAP MASK TAKEN OFF TO BLOW HIS NOSE. PLACED BACK ON. PT SHARRON IN ROOM TO EVAULATE PATIENT.
--- NOTE | 2020-07-24 17:06 | NUR ---
NEW IV PLCED ON RIGHT HAND 22 G. LAC IV LEAKING, WAS DISCONTINUED. PATIENT NOW IN PRONE POSITION AFTER SITTING ON SIDE OF BED.
--- NOTE | 2020-07-24 20:20 | NUR ---
SITTING UP IN BEDSIDE CHAIR. ON BIPAP. BREATH SOUNDS DIMINISHED THROUGHOUT. DRY COUGH NOTED. TRACE EDEMA OF BLE. IV IN RH WITH NS AT KVO-IV SITE PUFFY, IV PUMP ALARMING OCCLUSION. DC'D IV WITH CATHETER INTACT. SHIFT ASSESSMENT COMPLETED. GRIEVANCE COORDINATOR SHOWS SR. DISCUSSED PLAN OF CARE. REMINDED PATIENT OF IMPORTANCE OF PRONING WHEN HE GOES BACK TO BED. PATIENT VERBALIZES UNDERSTANDING OF TEACHING. CALL QUEZADA IN REACH.
--- NOTE | 2020-07-24 21:50 | NUR ---
SALINE LOCK RESTARTED BY Pretty RAMIREZ/RN #20 IN .
--- NOTE | 2020-07-24 22:15 | NUR ---
PATIENT ASSISTED BACK TO BED BY HALINA CRAWFORD. RESTING IN PRONE POSITION. REMAINS ON BIPAP. MONITOR SHOWS SR.
[2020-07-25] VITALS (20 sets, daily range): BP systolic 125–175; BP diastolic 69–100
--- NOTE | 2020-07-25 | NUR ---
RESTING IN BED IN PRONE POSITION. O2 SAT 98% SR ON MONITOR.
--- NOTE | 2020-07-25 02:00 | NUR ---
RESTING IN BED IN PRONE POSITON. REMAINS ON BIPAP. SR ON MONITOR.
--- NOTE | 2020-07-25 02:30 | NUR ---
PATIENT SITTING AT SIDE OF BED TO USE URINAL.
--- NOTE | 2020-07-25 04:00 | NUR ---
PATIENT HAS BEEN SITTING AT SIDE OF BED FOR PAST 2 HOURS. BIPAP REMAINS IN USE. VSS. ST ON MONITOR.
--- NOTE | 2020-07-25 06:45 | NUR ---
REPORT RECEIVED FROM YUMIKO DE LOS SANTOS. CARE ASSUMED.
[2020-07-25 07:01] LABS: HEMATOCRIT 50.5 % (39.0-50.0); HEMOGLOBIN 15.6 g/dl (14.0-18.0); MEAN CELL VOLUME 85.9 fL CALC (80.0-100.0); MEAN CORPUSCULAR HGB 26.5 pG CALC (26.0-32.0); MEAN CORPUSCULAR HGB CONC 30.9 g/dL CAL (32.0-36.0); RED BLOOD COUNT 5.88 mill/uL (4.70-6.10); RED CELL DISTRI WIDTH 14.6 % (11.5-15.5)
[2020-07-25 07:24] LABS: ALKALINE PHOSPHATASE 64 u/l (38-126); ANION GAP 18 (6-22 (CALC)); BILIRUBIN, TOTAL 0.7 mg/dL (0.0-1.4); BUN 21 mg/dL (9-20); BUN/CREATININE RATIO 21 (12-20 (CALC)); CARBON DIOXIDE 20 mmol/l (22-30); CHLORIDE 101 mmol/l (95-108); GFR > 60 ML/MIN (>=60 (CALC)); GFR FOR AFR.AMER. > 60 ML/MIN (>=60 (CALC)); MAGNESIUM 2.7 mg/dL (1.6-2.3); SGOT/AST 38 u/l (17-59); SODIUM 134 mmol/l (137-146); TOTAL PROTEIN 7.6 g/dL (6.3-8.2)
[2020-07-25 07:26] LABS: POTASSIUM 5.3 mmol/l (3.5-5.1)
--- NOTE | 2020-07-25 07:30 | NUR ---
PT RESTING IN BED IN PRONE POSITION AT THIS TIME. PT IS ALERT AND ORIENTED X3. SHIFT ASSESSMENT COMPLETED AT THIS TIME. IV PATENT X1. CALL LIGHT IN REACH. WILL CONTINUE TO MONITOR.
--- NOTE | 2020-07-25 07:45 | NUR ---
PT ASSISTED UP TO RECLINER AT THIS TIME ON BIPAP.
--- NOTE | 2020-07-25 08:10 | NUR ---
DR CHAU AT BEDSIDE AT THIS TIME.
--- NOTE | 2020-07-25 08:25 | NUR ---
RT AT BEDSIDE AT THIS TIME ATTEMPTING TO WEAN PT FROM BIPAP AND PLACE PT ON VAPOTHERM.
--- NOTE | 2020-07-25 08:30 | NUR ---
PLACED PT ON VAPOTHERM 40L 100% 33'. SPO2 93%. RN CARI AWARE. PT TOLERATING WELL
--- NOTE | 2020-07-25 09:52 | NUR ---
PT SITTING UP IN RECLINER AT BEDSIDE ON VAPOTHERM. RESP ARE EVEN AND UNLABORED. NO DISTRESS NOTED CALL LIGHT IN REACH. WILL CONTINUE TO MONITOR.
--- NOTE | 2020-07-25 10:13 | NUR ---
PHYSICAL THERAPY AT BEDSIDE AT THIS TIME.
--- NOTE | 2020-07-25 11:05 | NUR ---
PT ASSISTED UP TO BSC AT THIS TIME. PT TOLERATED WELL.
--- NOTE | 2020-07-25 12:12 | NUR ---
PT SITTING UP IN THE RECLINER AND SET UP FOR NOON MEAL. CALL LIGHT IN REACH. WILL CONTINUE TO MONITOR.
--- NOTE | 2020-07-25 13:43 | NUR ---
DECREASED FIO2 TO 75%. RN AWARE
--- NOTE | 2020-07-25 14:03 | NUR ---
PT ASSISTED BACK TO BED AT THIS TIME. PT MEDICATED WITH XANAX. XANAX REASONS AND SIDE EFFECTS EXPLAINED TO PT. PT STATES THAT HE DOES FEEL ANXIOUS. CALL LIGHT IN REACH. WILL CONTINUE TO MONITOR.
--- NOTE | 2020-07-25 16:08 | NUR ---
PT RESTING IN BED IN PRONE POSITION. RESP ARE EVEN AND UNLABORED. NO DISTRESS NOTED. CALL LIGHT IN REACH. WILL CONTINUE TO MONITOR.
--- NOTE | 2020-07-25 17:58 | NUR ---
PT SITTING UP IN RECLINER SET UP FOR PM MEAL RESP ARE EVEN AND UNLABORED. NO DISTRESS NOTED. CALL LIGHT IN REACH. WILL CONTINUE TO MONITOR.
--- NOTE | 2020-07-25 20:15 | NUR ---
SITTING UP IN BEDSIDE CHAIR. PATIENT STATES FEELING MUCH BETTER TODAY AND LOOKS BETTER TODAY THAN YESTERDAY. RESP NON-LABORED AT REST. ON VAPOTHERM 4O LITERS/100% FIO2. BREATH SOUNDS DIMINISHED/CLEAR. TRACE EDEMA OF BLE-PATIENT HAS BEEN SITTING WITH LEGS IN DEPENDENT POSITION. SALINE LOCK IN RH SITE BENIGN. FORGING DIES FINAL FINISHER SHOW SR. DISCUSSED PLAN OF CARE. DENIES NEEDS AT THIS TIME. CALL QUEZADA IN REACH.
--- NOTE | 2020-07-25 21:45 | NUR ---
ASSISTED BACK TO BED BY SALINA/HALINA. PATIENT RESTING IN PRONE POSITION. VSS. SR ON MONITOR.
[2020-07-26] VITALS (11 sets, daily range): BP systolic 132–156; BP diastolic 74–103
--- NOTE | 2020-07-26 | NUR ---
RESTING IN PRONE POSITION. REMAINS ON VAPOTHERM 40 LITERS/100% FIO2. RR-27. O2 SAT 90% VSS. SR ON MONITOR.
--- NOTE | 2020-07-26 01:15 | NUR ---
PATIENT REQUESTS TO SIT AT SIDE OF BED TO VOID. VOIDED 400 ML BO URINE. CONTINUES TO SIT AT SIDE OF BED.
--- NOTE | 2020-07-26 01:45 | NUR ---
ASSISTED PATIENT UP TO BSC. DESATS WITH ACTIVITY BUT QUICKLY RECOVERS.
--- NOTE | 2020-07-26 02:30 | NUR ---
PATIENT RESTING IN BED IN PRONE POSITON. O2 SAT 89-91%
--- NOTE | 2020-07-26 05:52 | NUR ---
07-25-20 Patient presents sitting EOB. He is saturating at 95% and is able to perfrom DBE without difficulty. He received a copy of COVID pneumonia treatment principles. He is able to stand and ambulate in place nearly 2 minutes prior to tapotment to bases and DBE with coughing and breath holds. Am Pac is 14 indicating he would do well to DC home when medically stable
--- NOTE | 2020-07-26 06:00 | NUR ---
SLEPT FOR LONG INTERVALS. VSS. REMAINS ON VAPOTHERM 40 LITERS/100% O2. SR-ST ON MONITOR.
--- NOTE | 2020-07-26 07:27 | NUR ---
PT REPORT RECEIVED FROM CHIEF DESIGN BRANCH, PT PLACED UP IN RECLINER WITH ASSIST, PT SLOW TO GET UP AND OXYGEN LEVEL DROPS WITH EXERTION BUT STATES IS FEELING BETTER THAN YESTERDAY.
[2020-07-26 08:18] LABS: HEMATOCRIT 49.9 % (39.0-50.0); HEMOGLOBIN 15.7 g/dl (14.0-18.0); IMMATURE GRANULOCYTES 1.4 % (0.0-5.0); MEAN CELL VOLUME 85.2 fL CALC (80.0-100.0); MEAN CORPUSCULAR HGB 26.8 pG CALC (26.0-32.0); MEAN CORPUSCULAR HGB CONC 31.5 g/dL CAL (32.0-36.0); NEUT# 11.79 thou/uL (1.82-7.42); RED BLOOD COUNT 5.86 mill/uL (4.70-6.10); RED CELL DISTRI WIDTH 14.6 % (11.5-15.5)
[2020-07-26 08:47] LABS: ALBUMIN 3.8 g/dL (3.2-5.0); ALKALINE PHOSPHATASE 70 u/l (38-126); ANION GAP 16 (6-22 (CALC)); BILIRUBIN, TOTAL 0.7 mg/dL (0.0-1.4); BUN 22 mg/dL (9-20); BUN/CREATININE RATIO 25 (12-20 (CALC)); C-REACTIVE PROTEIN 6.1 mg/dL (0-0.9); CARBON DIOXIDE 22 mmol/l (22-30); CHLORIDE 102 mmol/l (95-108); CREATININE 0.9 mg/dL (0.7-1.3); GFR > 60 ML/MIN (>=60 (CALC)); GFR FOR AFR.AMER. > 60 ML/MIN (>=60 (CALC)); SGOT/AST 40 u/l (17-59); SODIUM 135 mmol/l (137-146); TOTAL PROTEIN 7.7 g/dL (6.3-8.2)
[2020-07-26 08:48] LABS: POTASSIUM 5.2 mmol/l (3.5-5.1)
--- NOTE | 2020-07-26 09:01 | NUR ---
CONSULT ORDER PLACED AND CALLED TO DR. MARMOLEJO
--- NOTE | 2020-07-26 10:20 | NUR ---
PT REMAINS UP IN RECLINER WITH VAPOTHERM STILL ON AT 100%, PT DENIES ANY COMPLAINTS AT THIS TIME, STILL STATES HE FEELS BETTER THAN YESTERDAY , ALTHOUGH REMAINS HAVING SOB WITH ANY EXERTION.
--- NOTE | 2020-07-26 11:53 | NUR ---
PT STATES NOT HUNGARY AT THIS TIME. PLACED PT BACK IN BED IN PRONING POSITION. SATS DROPPED TO 85 WHEN MOVING TO BED BUT WITHIN MIN BACK UP TO 91% AFTER PRONING POSITION. PT DENIES ANY SOB, DENIES ANY COMPLAINT, CALL LIGHT WITHIN REACH
--- NOTE | 2020-07-26 14:33 | NUR ---
PT RESTING IN RECLINER WITH REMDESIVER INFUSING, GAVE PT SOME PUDDING, HE DOES NOT LIKE THE MEALS WE SERVE, ASKED WHAT WE COULD GIVE HIM AND HE SAYS FAMILY WILL BRING IT IN.
--- NOTE | 2020-07-26 18:29 | NUR ---
PT SITTING UP IN RECLINER, ALERT/ORIENTED X3, FAMILY MEMBER DROPPED COUGH DROPS OFF AND GAVE PT TO USE. PT DENIES ANY SOB, DENIES ANY CHEST PAIN, STILL STATES FEELS BETTER THAN YESTERDAY, SATS REMAIN IN HIGH 80'S ON VAPOTHERM, ANY EXERTION AND SATS DROP TO MID 80'S. REST OF VITAL SIGNS REMAIN STABLE
--- NOTE | 2020-07-26 19:30 | NUR ---
PT SITTING UP IN RECLINER AT BEDSIDE AT THIS TIME. PT IS ALERT AND ORIENTED X3. SHIFT ASSESSMENT COMPLETED AT THIS TIME. IV PATENT X1. CALL LIGHT IN REACH. WILL CONTINUE TO MONITOR.
--- NOTE | 2020-07-26 20:41 | NUR ---
BP DR BARKLEY NOTIFIED.
--- NOTE | 2020-07-26 21:00 | NUR ---
PT ASSISTED UP TO BSC AT THIS TIME.
--- NOTE | 2020-07-26 21:45 | NUR ---
PT ASSISTED BACK TO BED AT THIS TIME. PT IN PRONE POSITION. CALL LIGHT IN REACH. WILL CONTINUE TO MONITOR.
[2020-07-27] VITALS (10 sets, daily range): BP systolic 138–198; BP diastolic 64–112
--- NOTE | 2020-07-27 00:17 | NUR ---
pt requests to sit up in recliner at bedside. pt assisted up to recliner. resp are even and unlabored. no distress noted. call light in reach. will continue to monitor.
--- NOTE | 2020-07-27 02:00 | NUR ---
pt sitting up in recliner at bedside watching tv. resp are even and unlabored. no distress noted. call light in reach. will continue to monitor.
--- NOTE | 2020-07-27 03:58 | NUR ---
PT SITTING UP IN RECLINER AT THIS TIME WATCHING TV. RESP ARE EVEN AND UNLABORED. NO DISTRESS NOTED. CALL LIGHT IN REACH. WILL CONTINUE TO MONITOR.
--- NOTE | 2020-07-27 04:36 | NUR ---
LAB AT BEDSIDE FOR AM LAB DRAWS
[2020-07-27 05:08] LABS: HEMATOCRIT 50.8 % (39.0-50.0); HEMOGLOBIN 15.8 g/dl (14.0-18.0); IMMATURE GRANULOCYTES 2.8 % (0.0-5.0); MEAN CELL VOLUME 84.9 fL CALC (80.0-100.0); MEAN CORPUSCULAR HGB 26.4 pG CALC (26.0-32.0); MEAN CORPUSCULAR HGB CONC 31.1 g/dL CAL (32.0-36.0); NEUT# 13.28 thou/uL (1.82-7.42); RED BLOOD COUNT 5.98 mill/uL (4.70-6.10); RED CELL DISTRI WIDTH 14.6 % (11.5-15.5)
[2020-07-27 05:37] LABS: ALBUMIN 3.9 g/dL (3.2-5.0); ALKALINE PHOSPHATASE 72 u/l (38-126); BILIRUBIN, TOTAL 0.5 mg/dL (0.0-1.4); BUN 19 mg/dL (9-20); BUN/CREATININE RATIO 22 (12-20 (CALC)); CARBON DIOXIDE 21 mmol/l (22-30); CHLORIDE 103 mmol/l (95-108); CREATININE 0.8 mg/dL (0.7-1.3); GFR > 60 ML/MIN (>=60 (CALC)); GFR FOR AFR.AMER. > 60 ML/MIN (>=60 (CALC)); SGOT/AST 32 u/l (17-59); SODIUM 134 mmol/l (137-146); TOTAL PROTEIN 7.9 g/dL (6.3-8.2)
[2020-07-27 05:38] LABS: ANION GAP 15 (6-22 (CALC)); POTASSIUM 5.4 mmol/l (3.5-5.1)
--- NOTE | 2020-07-27 06:02 | NUR ---
PT SITING UP IN RECLINER AT BEDSIDE. PT DOZES ON AND OFF. RESP ARE EVEN AND UNALBORD. VSS ON MONITOR. CALL LIGHT IN REACH. WILL CONTINUE TO MONITOR.
--- NOTE | 2020-07-27 07:00 | NUR ---
PT REPORT RECEIVED FROM COMPUTER INSTALLER, PT SITTING UP IN RECLINER, REMAINS ON VAPOTHERM,
--- NOTE | 2020-07-27 09:42 | NUR ---
PT SITTING UP IN RECLINER, WATCHING TV.
--- NOTE | 2020-07-27 10:22 | NUR ---
PT REMAINS SITTING UP IN CHAIR, IS MOVING AROUND ROOM WITH A CRUTCH.
--- NOTE | 2020-07-27 10:35 | NUR ---
RESP WEANED VAPOTHERM DOWN PER DR. REQUEST, SATS REMAIN 90-93% WITH PT AT REST.
--- NOTE | 2020-07-27 11:04 | NUR ---
PT IN WORKING WITH PT. PT SMILING AND LAUGHING WITH STAFF. STATES FEELS MUCH BETTER TODAY
--- NOTE | 2020-07-27 13:20 | NUR ---
PT REMAINS SITTING UP IN RECLINER, ALERT/ORIENTED X3, USING THE INSPIROMETER, FOLLOWING DIRECTIONS FROM PT, VITAL SIGNS STABLE, RESP HERE AND DECREASED VAPOTHERM TO 30/95%. SATS STAY IN THE LOW 90'S WITH THE SETTING. PT STATES HE WANTS TO GET UP AND TRY AND MOVE AROUND THE ROOM, ADVISED TO USE CALL LIGHT AND SOMEONE WILL COME IN TO HELP. NO COMPLAINTS AT THIS TIME.
--- NOTE | 2020-07-27 16:40 | NUR ---
Patient is seen today for continued work with his respirations and deep breathing. He actually lost a little inspiratory volume and was struggling to reach 1000 on the incentive spirometer. He did do well with some tapotment and had minor sputim production although it was clear. He stood and marched in place and desasturated to 79 but recovered to 90 plus on O2 after 2 minutes Am Pac is unchanged and he would do well to DC home once stable
--- NOTE | 2020-07-27 16:58 | NUR ---
PT PLACED BACK INTO BED, STATES LEFT LOWER LEG WAS STARTING TO TINGLE, HE THINKS FROM SITTING ON EDGE OF CHAIR ALL DAY. WILL CONTINUE TO MONITER AFTER PT HAS PRONED AND GOTTEN OFF OF LEG FOR 10 -15 MIN.
--- NOTE | 2020-07-27 18:33 | NUR ---
PT TO HAVE A CTA OF CHEST AND ECHO , UNSUCCESSFUL ATTEMPT AT IV SITE, WILL HAVE OTHER NURSE TRY.
--- NOTE | 2020-07-27 18:45 | NUR ---
REPORT RECEIVED FROM YARELIS DE LOS SANTOS. CARE ASSUMED.
--- NOTE | 2020-07-27 19:00 | NUR ---
PT SITTING UP IN RECLINER. PT IS ALERT AND ORIENTED X3. SHIFT ASSESSMENT COMPLETED AT THIS TIME. IV PATENT X1. MULTI ATTEMPTS BY DAY SHIFT FOR AN AC IV SITE UNSUCCESSFUL. CALL LIGHT IN REACH. WILL CO NTINUE TO DAYAN.
--- NOTE | 2020-07-27 20:30 | NUR ---
NURSE INTO ROOM TO ASSIST PT WITH GETTING BACK T BED. PT STATES THAT HIS RIGHT LEG IS NUMB AND WEAK. NIH COMPLETED AT THIS TIME. NIH-3 SCORED. CALLED STROKE ALERT. RT AT BEDSIDE FOR STAT EKG FOR TACHYCARDIA. 120-145 ST. PT PLACED ON BIPAP AND TRANSPORTED TO RADIOLOGY FOR CT BRAIN AND TELESTROKE CONSULT. Pretty CHEEMA NOTIFIED FROM RADIOLOGY OF THE SAME.
--- NOTE | 2020-07-27 21:30 | NUR ---
PT RETURNED TO ICU 2 FROM RADIOLOGY.
[2020-07-27 21:39] LABS: GFR > 60 ML/MIN (>=60 (CALC)); GFR FOR AFR.AMER. > 60 ML/MIN (>=60 (CALC))
--- NOTE | 2020-07-27 21:40 | NUR ---
DR CHAU PHONED FOR UPDATES. UPDATED ON STROKE ALERT AND TELESTROKE NIH OF 4. NEW ORDERS RECEIVED.
--- NOTE | 2020-07-27 22:02 | NUR ---
DR BHAT AT BEDSIDE FOR CENTRAL LINE PLACEMENT. PT GAVE VERBAL CONSENT.
--- NOTE | 2020-07-27 22:23 | NUR ---
TWO UNSUCCESFFUL ATTEMPTS FOR CENTRAL LINE PLACEMENT.
--- NOTE | 2020-07-27 23:29 | NUR ---
PT RESTING IN BED PRONE AND ON BIPAP. PT MEDICATED WITH LABETOLOL PER AUG CALL LGIHT IN REACH. WILL CONTINUE TO MONITOR.
[2020-07-28] VITALS (67 sets, daily range): BP systolic 103–259; BP diastolic 56–153
--- NOTE | 2020-07-28 01:50 | NUR ---
PT RESTING IN BED IN PRONE POSITION ON BIPAP. VSS ON MONITOR. CALL LIGHT IN REACH. WILL CONTINUE TO MONITOR
--- NOTE | 2020-07-28 04:00 | NUR ---
PT RESTING IN BED IN PRONE POSITION ON BIPAP. VSS ON MONITOR. CALL LIGHT IN REACH. WILL CONTINUE TO MONTIOR.
--- NOTE | 2020-07-28 05:00 | NUR ---
RADIOLOGY AT BEDSIDE FOR PORTABLE CXR
--- NOTE | 2020-07-28 05:19 | NUR ---
RR INCREASED TO 40S AT THIS TIME. PT O2 SATS 93% ON BIPAP.
--- NOTE | 2020-07-28 05:33 | NUR ---
RT AT BEDSIDE FOR ABG
[2020-07-28 05:57] LABS: HEMATOCRIT 48.8 % (39.0-50.0); HEMOGLOBIN 15.5 g/dl (14.0-18.0); IMMATURE GRANULOCYTES 2.8 % (0.0-5.0); MEAN CELL VOLUME 84.9 fL CALC (80.0-100.0); MEAN CORPUSCULAR HGB CONC 31.8 g/dL CAL (32.0-36.0); NEUT# 13.26 thou/uL (1.82-7.42); RED BLOOD COUNT 5.75 mill/uL (4.70-6.10); RED CELL DISTRI WIDTH 14.9 % (11.5-15.5)
--- NOTE | 2020-07-28 06:15 | NUR ---
DR CHAU UPDATED ON ABG RESULTS AND INCREASED HEART RATE. ASKED TO DISCUSS INTUBATION WITH PT. DISCUSSED THIS WITH PATIENT. AT THIS TIME PATIENT IS HESITANT. WANTS HIS FAMILY TO BE NOTIFIED. PHONED SISTER HESHAM UPDATE PROVIDED.
[2020-07-28 06:20] LABS: ALBUMIN 3.6 g/dL (3.2-5.0); ALKALINE PHOSPHATASE 69 u/l (38-126); ANION GAP 15 (6-22 (CALC)); BILIRUBIN, TOTAL 0.7 mg/dL (0.0-1.4); BUN 18 mg/dL (9-20); BUN/CREATININE RATIO 21 (12-20 (CALC)); CARBON DIOXIDE 21 mmol/l (22-30); CHLORIDE 102 mmol/l (95-108); CREATININE 0.9 mg/dL (0.7-1.3); GFR > 60 ML/MIN (>=60 (CALC)); GFR FOR AFR.AMER. > 60 ML/MIN (>=60 (CALC)); POTASSIUM 5.1 mmol/l (3.5-5.1); SGOT/AST 44 u/l (17-59); SODIUM 132 mmol/l (137-146); TOTAL PROTEIN 7.5 g/dL (6.3-8.2)
[2020-07-28 06:45] LABS: C-REACTIVE PROTEIN 14.8 mg/dL (0-0.9)
--- NOTE | 2020-07-28 07:45 | NUR ---
pt awake in bed; assessment completed at this time; pt alert and oriented; denies pain; no n/v noted per automobile and property underwriter; medicated with tylenol for temp of 101.7; resp labored; lungs clear/ diminished; skin color wnl; o2 per bipap and maintained; wash box operator cough noted; hr reg; strong pulses; no edema noted; st on monitor; abd soft/ distended with bs present; no bm noted per automobile and property underwriter; pt admits to voiding without complication; no urine to inspect at this time; urinal at bedside; #20 flushed and patent to rh; no redness or edema noted at site; pt admits to difficulty breathing; plan of care including intubation explained; pt gives this automobile and property underwriter and Jose Rafael Lora RN verbal consent for intubation and central line placement; Dr Lr notified; pt remains proned; requesting to come off bipap and denied per automobile and property underwriter; call light within reach; will continue to monitor
--- NOTE | 2020-07-28 08:00 | NUR ---
0800: Dr Phoenix present at bedside; Dr Rodriguez present at bedside; RT Alvin. Avery and this senior mortgage underwriter present at bedside; Rocuronium and Etomidate administered per Dr Lr; 0802: pt intubated per Dr Lr x1 attempt; 8.0 Fr ETT orally secured at the 24cm lip line 0804: 5cc (50mg) propofol bolus per Dr Lr 0806: 5cc (50mg) propofol bolus per Dr Lr 0810: NG tube placed to right nare x1 attempt; placement confirmed via air insertion/ ascult; ng tube to lis 0817: TLC placed to right groin x1 attempt per Dr Lr; lumens flushed and patent; brisk blood return noted from all lumens 0825: 5cc (50mg) propofol bolus per Dr Lr 0830: 5cc (50mg) propofol bolus per Dr Lr 0835: 5cc (50mg) propofol bolus per Dr Lr; xray present at bedside;
--- NOTE | 2020-07-28 10:02 | NUR ---
pt intubated and sedated; vent intact and maintained; propofol at 70 mcg/kg/min; versed gtt at 1mg/hr; cazares to gravity; repositioned; st on monitor; will continue to monitor closely
--- NOTE | 2020-07-28 10:11 | NUR ---
sister Eliz MedinaLara called per typewriter mechanic; detail updated provided; black mens bag sent home with Valery as per pt request; bag contained $354.00 and wei singhet; will notify sister Valery with any changes; will continue to monitor
--- NOTE | 2020-07-28 10:20 | NUR ---
call placed to [facility] transfer center; spoke with Abhishek; information provided; facesheet and covid results fax; will await return call
--- NOTE | 2020-07-28 11:25 | NUR ---
received call from [facility] Abhishek; ICU Covid bed are full at this time; Abhishek to notify this policy writer typist later this evening on bed status
--- NOTE | 2020-07-28 12:00 | NUR ---
Patient had respiratory failure and subsequently was ventilated. We will place giancarlo on hold for now and continue when he is more stable
--- NOTE | 2020-07-28 12:00 | NUR ---
intubated and sedated; no apparent distress noted; vent intact and maintained; propofol gtt at 70mcg/kg/min; versed gtt at 3mg/hr; restraints intact; cazares to gravity; bialt scds intact; st on monitor; repositioned; will continue to monitor
--- NOTE | 2020-07-28 12:06 | NUR ---
call received from [facility] Abhishek; [facility] does not accept pt insurance
--- NOTE | 2020-07-28 12:10 | NUR ---
Dr Rodriguez informed of no beds available [facility] icu beds and [facility] not accepting pt insurance; orders received to try [facility]; will continue to monitor
--- NOTE | 2020-07-28 12:48 | NUR ---
[facility] transfer center called at [phone]; spoke with Beto; pt declined; covid closed for transfers
--- NOTE | 2020-07-28 12:56 | NUR ---
[facility] called in regards to transfer; spoke with Rock Joseph to call Dr Rodriguez in regards to accepting pulmon; will continue to monitor
--- NOTE | 2020-07-28 14:27 | NUR ---
call received from [facility]; accepting MD Dr Barcenas; facesheet to be faxed to [phone]
--- NOTE | 2020-07-28 14:38 | NUR ---
Eliz Lara called this play writer; update provided; will continue to monitor
--- NOTE | 2020-07-28 15:58 | NUR ---
JED KUMAR SUPERVISOR SEWING ROOM CALLED HERE TO REPORT BED NUMBER IN ICU, NUMBER TO CALL [phone], CHARGE NURSE IN ICU TORY. WILL NOTIFY MAGALI SKINNER
--- NOTE | 2020-07-28 16:15 | NUR ---
[facility] called per designer/writer; CORINNE after 2029; will notify
--- NOTE | 2020-07-28 16:20 | NUR ---
Dr Rodriguez called per race and sports book writer in regards to ETA for ground transport; orders received to air lift;
--- NOTE | 2020-07-28 16:32 | NUR ---
[facility] called per movie writer; information provided; ashley girhumberto approx 63 ic; awaiting return call
--- NOTE | 2020-07-28 17:07 | NUR ---
received called from [employer]; all aircrafts have declined d/t pt size
--- NOTE | 2020-07-28 17:08 | NUR ---
[facility] TRANSPORT [facility]UM[facility] CALLED PER FINANCIAL ASSISTANCE ADVISOR; INFORMATION PROVIDED;
--- NOTE | 2020-07-28 17:22 | NUR ---
[facility] called this promotion writer; requesting hip to hip measurement; 31-32 inches provided
--- NOTE | 2020-07-28 17:34 | NUR ---
call received from [employer]; pt declined d/t size
--- NOTE | 2020-07-28 18:00 | NUR ---
complete bed bath administered; iv intact and patent; propofol and versed infusing without complication; cazares to gravity; repositioned supine; vent intact and maintained;
--- NOTE | 2020-07-28 18:30 | NUR ---
sister Eliz Lara called per data analyst report writer; update provided;
--- NOTE | 2020-07-28 19:25 | NUR ---
[facility] transport on unit to receive pt; report given; pt discharge with WC transport in stable condition to transfer to [facility]
--- NOTE | 2020-07-28 19:27 | NUR ---
[facility] Bill called per underwriter solicitation director; report given;
--- NOTE | 2020-07-28 19:29 | NUR ---
PT TRANSFERED TO [facility].
== END 2020-07-28 19:25 | DRG 208 ==
LOC: ED 17:16 → ED-I 19:10 → ICU 19:13 → ED 19:13 → ICU 07-21 04:39
PROVIDERS: Internal Medicine; Nurse Practitioner; Nurse Practitioner Family; ADMIT Internal Medicine; ATTEND Internal Medicine
PROC: XW033E5 Introduction of Remdesivir Anti-infective into Peripheral Vein, Percutaneous Approach, New Technology Group 5 (ICD-10-PCS; principal; 2020-07-21)
PROC: 5A09357 Assistance with Respiratory Ventilation, Less than 24 Consecutive Hours, Continuous Positive Airway Pressure (ICD-10-PCS; 2020-07-23)
PROC: 5A1935Z Respiratory Ventilation, Less than 24 Consecutive Hours (ICD-10-PCS; 2020-07-28)
PROC: 06HY33Z Insertion of Infusion Device into Lower Vein, Percutaneous Approach (ICD-10-PCS; 2020-07-28)
PROC: 0BH17EZ Insertion of Endotracheal Airway into Trachea, Via Natural or Artificial Opening (ICD-10-PCS; 2020-07-28)
DX: U07.1 COVID-19 (principal); J12.82 Pneumonia due to coronavirus disease 2019; J96.01 Acute respiratory failure with hypoxia; Z68.41 Body mass index [BMI] 40.0-44.9, adult; G45.9 Transient cerebral ischemic attack, unspecified; R00.0 Tachycardia, unspecified; I10 Essential (primary) hypertension; E78.5 Hyperlipidemia, unspecified; E66.9 Obesity, unspecified; F41.9 Anxiety disorder, unspecified; Z88.0 Allergy status to penicillin
CPT/HCPCS: J1650; S0073; S0164